=== PATIENT | male | born 1965 | race Two or more races ===

== ENCOUNTER 2019-04-04 12:55 | Emergency (ER) | payer OTHER, MEDICAID ==
[~2019-04-04] VITALS: Ht 167.6 cm; Wt 127.0 kg
[2019-04-04] MEDS ORDERED: KETOROLAC TROMETH 60MG/2ML VIAL IM ONE (14:15)
[2019-04-04 15:29] VITALS: BP 121/83
== END 2019-04-04 16:51 | disposition home or self-care (01) ==
LOC: EDBD 12:55 → ER 12:55
DX: M54.5 Low back pain (principal); M54.6 Pain in thoracic spine; J44.9 Chronic obstructive pulmonary disease, unspecified; E11.9 Type 2 diabetes mellitus without complications; I10 Essential (primary) hypertension; F12.90 Cannabis use, unspecified, uncomplicated; W01.0XXA Fall on same level from slipping, tripping and stumbling without subsequent striking against object, initial encounter; Y93.89 Activity, other specified; Y99.8 Other external cause status; Y92.59 Other trade areas as the place of occurrence of the external cause
CPT/HCPCS: 70450; 72125; 96372; 99284; J1885